=== PATIENT | female | born 1970 | race Caucasian/White ===

== ENCOUNTER → 2017-08-15 | Outpatient (CLI) | payer OTHER | LOC: M.RAD 16:00 | DX: Z12.31 Encounter for screening mammogram for malignant neoplasm of breast (principal) ==

== ENCOUNTER → 2018-08-26 | Outpatient (CLI) | payer OTHER | LOC: M.RAD 14:53 | DX: Z12.31 Encounter for screening mammogram for malignant neoplasm of breast (principal) ==

== ENCOUNTER → 2019-09-29 | Outpatient (CLI) | payer OTHER | LOC: M.RAD 14:42 | DX: Z12.31 Encounter for screening mammogram for malignant neoplasm of breast (principal) ==